=== PATIENT | male | born 1965 | race Caucasian/White ===

== ENCOUNTER 2019-04-21 06:17 | Observation (INO) | payer OTHER ==
[2019-04-19 16:05] LABS: BASOPHILS # (AUTO) 0.1 (0.0-0.1); BASOPHILS % 1.4 % (0.0-1.0); EOSINOPHILS # (AUTO) 0.4 (0.0-0.4); HEMATOCRIT 45.3 % (38.2-49.6); HEMOGLOBIN 14.8 g/dL (14.0-18.0); LYMPHOCYTES # (AUTO) 2.6 (1.0-3.2); MEAN CORPUSCULAR HGB CONC 32.7 g/dL (31-35); MEAN CORPUSCULAR VOLUME 88.8 fL (81-99); MONOCYTES # (AUTO) 0.9 (0.2-0.8); MONOCYTES % 8.7 % (4.4-11.3); NEUTROPHILS # (AUTO) 5.7 (2.1-6.9); NEUTROPHILS % 58.7 % (38.7-80.0); PLATELET COUNT 392 x10e3/uL (140-360); RED CELL DISTRIBUTION WIDTH 13.1 % (11.7-14.4)
[2019-04-19 16:15] LABS: INR 0.93
[2019-04-19 16:16] LABS: PARTIAL THROMBOPLASTIN TIME 31.9 seconds (23.8-35.5)
[2019-04-19 16:20] LABS: ANION GAP 12.9 mmol/L (8-16); BLOOD UREA NITROGEN 16 mg/dL (7-26); BUN/CREATININE RATIO 21 (6-25); CALCIUM 9.5 mg/dL (8.4-10.2); CARBON DIOXIDE 28 mmol/L (22-29); CHLORIDE 100 mmol/L (98-107); CREATININE, SERUM 0.78 mg/dL (0.72-1.25); EST GLOMERULAR FILTRATION RATE > 60 ML/MIN (60-); GLUCOSE 104 mg/dL (74-118); POTASSIUM 3.9 mmol/L (3.5-5.1); SODIUM 137 mmol/L (136-145)
--- NOTE | 2019-04-19 16:40 | Diagnostic Imaging Report ---
EXAM: CHEST 2 VIEWS DATE: 04/19/2019 3:11 PM INDICATION: Preoperative evaluation COMPARISON: None FINDINGS: There is poor history effort. The trachea is midline. The lungs are symmetrically expanded without evidence for large focal consolidation, pneumothorax, or significant pleural effusion. The cardiomediastinal silhouette and pulmonary vascular within normal limits. No acute osseous abnormality is identified. IMPRESSION: No acute cardiopulmonary process identified. Signed by: Dr. Rey Orozco MD on 04/19/2019 4:37 PM
[~2019-04-21] VITALS: Ht 185.4 cm; Wt 134.3 kg
[~2019-04-21 06:17] MED LIST: AFRIN15 ML; ASPIRIN325 MG PO; COQ-10100 MG PO; FIBER TABS625 MG PO; FOLIC ACID0.4 MG PO; KRILL OIL500 MG PO; LISINOPRIL-HCT1 EACH PO; LISINOPRIL10 MG PO; MULTI-VITAMIN1 EACH PO; PROAIR HFA INH8.5 GM INH; VITAMIN C500 MG PO; VITAMIN D3400 UNI1 PO; VITAMIN E200 UNI3 PO
[2019-04-21] MEDS ORDERED: BACITRACIN 50,000 UNIT VIAL ONE (06:42)
[2019-04-21] MEDS ORDERED: THROMBIN FOR SOLN 5,000 UNIT VIAL ONE (06:42)
[2019-04-21] MEDS ORDERED: LIDOCAINE 1% W/EPINEPHRINE 20 ML VIAL ONE (06:43)
[2019-04-21] MEDS ORDERED: ACETAMINOPHEN 1000 MG/100 ML 100 ML IV ONE (07:05)
[2019-04-21] MEDS ORDERED: LIDOCAINE HCL (LTA) 4 ML SOLN ONE (07:05)
[2019-04-21] MEDS ORDERED: CEFAZOLIN SOD 1 GM/NS 50ML 100 ML IV ONE (07:48)
[2019-04-21] MEDS ORDERED: LACTATED RINGER'S 1,000 ML IV SCH (10:41)
[2019-04-21] MEDS ORDERED: PROMETHAZINE HCL (IM) 25 MG/ML VIAL IM PRN (10:45)
[2019-04-21] MEDS ORDERED: MAGNESIUM/ALUMINUM/SIMETHICONE 30 ML UDC PO PRN (10:45)
[2019-04-21] MEDS ORDERED: HYDROMORPHONE 2MG/ML 2 MG/ML ML IV PRN (10:45)
[2019-04-21] MEDS ORDERED: OXYCODONE/ACETAMINOPHEN 5-325 1 EACH TABLET PO PRN (10:45)
[2019-04-21] MEDS ORDERED: ONDANSETRON HCL INJ 2MG/ML 2ML 2 MG/ML VIAL IV PRN (10:45)
[2019-04-21] MEDS ORDERED: CARISOPRODOL 350 MG TAB PO PRN (10:45)
[2019-04-21] MEDS ORDERED: ALBUTEROL SULFATE HFA 8GM INHALATION AEROSOL INH PRN (10:45)
[2019-04-21] MEDS ORDERED: ZOLPIDEM TARTRATE 5 MG TAB PO PRN (10:45)
[2019-04-21] MEDS ORDERED: MORPHINE SULFATE 5 MG/ML VIAL IM PRN (10:45)
[2019-04-21] MEDS ORDERED: ACETAMINOPHEN 325 MG TAB PO PRN (10:45)
[2019-04-21] MEDS ORDERED: FENTANYL CITRATE/PF 100MCG/2 ML INJ ONE ×2 (12:03→19:16)
[2019-04-21] MEDS ORDERED: CEFAZOLIN SOD 1 GM/NS 50ML 50 ML IV SCH (14:00)
[2019-04-21] MEDS ORDERED: ONDANSETRON HCL INJ 2MG/ML 2ML 2 MG/ML VIAL ONE ×2 (14:01→17:34)
[2019-04-21] MEDS ORDERED: PROPOFOL IV EMULSION 10 MG/ML 20 ML VIAL ONE (14:01)
[2019-04-21] MEDS ORDERED: LIDOCAINE HCL 2% JELLY 5 ML TUBE ONE (14:01)
[2019-04-21] MEDS ORDERED: ROCURONIUM BROMIDE 10 MG/ML 5ML VIAL ONE (14:01)
[2019-04-21] MEDS ORDERED: DEXAMETHASONE SOD PHOS INJ 4 MG/ML VIAL ONE (14:01)
[2019-04-21] MEDS ORDERED: SEVOFLURANE INHAL SOLN 250 ML PEN BTL ONE (14:01)
[2019-04-21] MEDS ORDERED: LIDOCAINE HCL 2% LOCAL INJ 5 ML SDV VIAL INJ ONE (14:01)
[2019-04-21] MEDS ORDERED: OXYCODONE/ACETAMINOPHEN 5-325 1 EACH TABLET ONE (15:08)
[2019-04-21] MEDS ORDERED: CARISOPRODOL 350 MG TAB ONE (15:09)
--- NOTE | 2019-04-21 15:13 | NUR ---
received report from renae in pacu awaiting for pt to arrive to floor
[2019-04-21 15:27] VITALS: BP 120/75
[2019-04-21 15:28] VITALS: BP 120/75
[2019-04-21 15:55] VITALS: BP 120/75
[2019-04-21] MEDS ORDERED: MORPHINE SULFATE INJ 4 MG/ML INJ 1ML IM PRN (16:00)
--- NOTE | 2019-04-21 17:12 | Operative Report ---
DATE OF PROCEDURE: 04/21/2019 SURGEON: Wilber Valderrama MD PREOPERATIVE DIAGNOSIS: Left L5-S1 disk herniation with radiculopathy, M51.17. POSTOPERATIVE DIAGNOSIS: Left L5-S1 disk herniation with radiculopathy, M51.17. PROCEDURES: Left L5-S1 laminotomy, medial facetectomy, and microsurgical diskectomy, [id number]. ANESTHESIA: General. INDICATIONS: The patient is a 54-year-old man, who presents with the left L5-S1 disk herniation with radiculopathy. He was taken to surgery for microsurgical diskectomy. PROCEDURE IN DETAIL: After induction of general anesthesia, the patient was placed on the operating table in prone position over New frame. Lumbar region was prepped and draped in sterile fashion. The preoperative x-ray was obtained and a small midline incision was created. Lumbar fascia was opened in the left of midline and subperiosteal dissection was carried out to expose the left-sided L5-S1 lamina and the medial aspect of the facet joint. A second x-ray confirmed correct localization. The operating microscope was brought in. A high-speed drill equipped with nicky bur was used to drill the inferior aspect of lamina of L5 and the medial rim of the L5-S1 facet joint and superior rim of the lamina of S1. The ligamentum flavum was resected. The epidural veins were bipolar coagulated lateral to the nerve root. The nerve root was retracted medially. The herniated disk material came into view. The posterior longitudinal ligament overlying the disk herniation was incised with a #11 blade. The herniated disk material was mobilized with a micro ball probe and retrieved with a micro pituitary rongeur and removed. This maneuver was repeated several times until all of the extruded disk material superior to the disk space was retrieved and removed. The disk anulus itself was found to be fairly intact and therefore, the disk space itself was not violated during this procedure. The wound was copiously irrigated with bacitracin solution. Excellent decompression of the nerve root had been achieved. Meticulous hemostasis was secured. A piece of fat was harvested from the subcutaneous space and placed overlying the dura and the nerve root. The lumbar fascia was closed with 0 Vicryl suture. Subcutaneous layer was closed with 2-0 Vicryl sutures. The skin was closed with 3-0 Monocryl sutures in subcuticular fashion. Steri-Strips and dressing were applied. The patient was awakened, extubated, and taken to postanesthesia care unit in stable condition. No intraoperative complications were encountered. Estimated blood loss was minimal. Wilber Valderrama MD PP/YEIMI /[id number]
[2019-04-21] MEDS ORDERED: HYDROMORPHONE 2MG/ML 2 MG/ML ML ONE (17:34)
--- NOTE | 2019-04-21 17:44 | NUR ---
medicated pt with dilaudid with zofran for pain level of 8/10 in back
--- NOTE | 2019-04-21 17:45 | NUR ---
pt off unit to room 115
--- NOTE | 2019-04-21 18:04 | NUR ---
received patient from [facility], pt is stable with no s/s of distress. no complaints of pain. pt was oriented to call light and room. instructed pt to call RN for help. family is at the bedside
[2019-04-21] MEDS ORDERED: SODIUM CHLORIDE 0.9% 250ML 250 ML ONE (18:34)
[2019-04-21] MEDS: CEFAZOLIN SOD 1 GM/NS 50ML 50 ML IV SCH (18:38)
[2019-04-21] MEDS ORDERED: MIDAZOLAM HCL 2 MG/2 ML VIAL ONE (19:16)
[2019-04-21 20:00] VITALS: BP_SYST 103; BP_SYST 120; BP_DIAS 61; BP_DIAS 75
--- NOTE | 2019-04-21 20:00 | NUR ---
RECEIVED REPORT FROM OFF GOING NURSE, PATIENT RESTING IN BED, NO COMPLAINTS VOICED. DRESSING REMAIN INTACT TO LOWER BACK, NO DISTRESS NOTED. CALL LIGHT REMAIN IN REACH.
[2019-04-21] MEDS ORDERED: OXYMETAZOLINE HCL 0.05% NAS 1 SPRAY BTL SCH (21:00)
[2019-04-21] MEDS ORDERED: INFLUENZA VIRUS VAC SPLIT INJ 0.5 ML SYR IM SCH (21:00)
[2019-04-22] VITALS: BP 112/62
--- NOTE | 2019-04-22 | NUR ---
CONTINUE RESTING, DRESSING REMAIN INTACT.
[2019-04-22] MEDS: CEFAZOLIN SOD 1 GM/NS 50ML 50 ML IV SCH ×2 (02:30→09:10)
[2019-04-22 04:00] VITALS: BP 91/51
--- NOTE | 2019-04-22 04:00 | NUR ---
ASLEEP, CALL LIGHT REMAIN IN REACH. SCD'S REMAIN INTACT, WILL CONTINUE TO MONITOR.
--- NOTE | 2019-04-22 06:44 | NUR ---
PATIENT AMBULATED IN THE HALLWAY, TOLERATED WELL, WILL CONTINUE TO MONITOR.
--- NOTE | 2019-04-22 07:25 | NUR ---
Received patient, a/ox3, rounds completed, no distress, minimal pain but well managed, call light within reach, will monitor.
--- NOTE | 2019-04-22 07:30 | NUR ---
REPORT GIVEN TO AM NURSE.
[2019-04-22 07:41] VITALS: BP 108/57
--- NOTE | 2019-04-22 08:30 | NUR ---
Tylenol #3 given for pain at 08:30, unable to document due to closed chart.
[2019-04-22] MEDS ORDERED: HYDROCHLOROTHIAZIDE 25 MG TAB PO SCH (09:00)
[2019-04-22] MEDS ORDERED: CHOLECALCIFEROL 400 UNIT TAB PO SCH (09:00)
[2019-04-22] MEDS ORDERED: MULTIVITAMINS/MINERALS TAB PO SCH (09:00)
[2019-04-22] MEDS ORDERED: CHOLECALCIFEROL 400 MG PO SCH (09:00)
[2019-04-22] MEDS ORDERED: ASCORBIC ACID 400 MG PO SCH (09:00)
[2019-04-22] MEDS ORDERED: CALCIUM POLYCARBOPHIL 625 MG TAB PO SCH (09:00)
[2019-04-22] MEDS ORDERED: LISINOPRIL 20 MG TAB PO SCH (09:00)
[2019-04-22] MEDS ORDERED: UBIDECARENONE 500 MG PO SCH (09:00)
[2019-04-22] MEDS ORDERED: KRILL OIL PO SCH (09:00)
[2019-04-22] MEDS ORDERED: ASCORBIC ACID 500 MG TAB PO SCH (09:00)
[2019-04-22] MEDS ORDERED: VITAMIN E MIXED PO SCH (09:00)
[2019-04-22 09:01] VITALS: BP 108/57
--- OUTSIDE RECORDS SUMMARY | 2019-04-22 14:03 | XMS REPORT ---
Author Author [facility] Address Unknown Phone Unavailable Care Team Providers Care Customer Strategy Manager Name Role Phone EMERSON MCFARLAND Unavailable Unavailable Problems This patient has no known problems. Allergies, Adverse Reactions, Alerts This patient has no known allergies or adverse reactions. Medications This patient has no known medications. Results Test Description Test Time Test Comments Text Results Atomic Results Result Comments CHEST 2 VIEWS 2019-04-19 16:36:00 [place] [address] Patient Name: ENRIQUE SÁNCHEZ MR #: [id number] : 1965 Age/Sex: 54/M Req #: [id number] Adm Physician: Ordered by: EMERSON MCFARLAND MD Report #: [id number] Location: OR Room/Bed: Procedure: [id number] DX/CHEST 2 VIEWS Exam Date: Exam Time: REPORT STATUS: Signed EXAM: CHEST 2 VIEWS DATE: 04/19/2019 3:11 PM INDICATION: P reoperative evaluation COMPARISON: None FINDINGS: There is poor history effort. The trachea is midline. The lungs are symmetrically expanded without evidence for large focal consolidation, pneumothorax, or significant pleural effusion. The cardiomediastinal silhouette and pulmonary vascular within normal limits. No acute osseous abnormality is identified. IMPRESSION: No acute cardiopulmonary process identified. Signed by: Dr. Rey Orozco MD on 04/19/2019 4:37 PM Dictated By: REY OROZCO MD 163 Transcribed By: CHICA on 04/19/19 163 COPY TO: EMERSON MCFARLAND MD
== END 2019-04-22 09:25 | disposition home or self-care (01) ==
LOC: OR 06:17 → PACU V 10:43 → MED/SURG 17:55
PROVIDERS: ADMIT Neurological Surgery; ATTEND Neurological Surgery
DX: M51.17 Intervertebral disc disorders with radiculopathy, lumbosacral region (principal); I10 Essential (primary) hypertension; J45.909 Unspecified asthma, uncomplicated; R12 Heartburn
CPT/HCPCS: 36415; 63047; 71046; 72020; 80048; 85025; 85610; 85730; 86850; 86900; 88304; 93005; G0378 ×2; J0131; J0690 ×2; J1100; J1170; J2001 ×2; J2250; J2405; J2704; J3010; J7050

== ENCOUNTER 2020-09-20 05:51 | Emergency (ER) | payer OTHER ==
[~2020-09-20] VITALS: Ht 185.4 cm; Wt 134.3 kg
[2020-09-20] MEDS ORDERED: SODIUM CHLORIDE 0.9% 1000ML 1,000 ML IV STA (05:59)
[2020-09-20] MEDS ORDERED: ONDANSETRON HCL INJ 2MG/ML 2ML 2 MG/ML VIAL IV STA (05:59)
[2020-09-20] MEDS ORDERED: ASPIRIN 81 MG CHEW TAB PO ONE (06:00)
[2020-09-20 06:11] LABS: BASOPHILS # (AUTO) 0.1 (0.0-0.1); BASOPHILS % 0.8 % (0.0-1.0); EOSINOPHILS # (AUTO) 0.2 (0.0-0.4); EOSINOPHILS % 1.6 % (0.0-6.0); HEMATOCRIT 48.3 % (38.2-49.6); HEMOGLOBIN 15.9 g/dL (14.0-18.0); LYMPHOCYTES # (AUTO) 0.9 (1.0-3.2); LYMPHOCYTES % 7.7 % (18.0-39.1); MEAN CORPUSCULAR HEMOGLOBIN 27.1 pg (28-32); MEAN CORPUSCULAR HGB CONC 32.9 g/dL (31-35); MEAN CORPUSCULAR VOLUME 82.4 fL (81-99); MONOCYTES # (AUTO) 1.4 (0.2-0.8); MONOCYTES % 12.7 % (4.4-11.3); NEUTROPHILS # (AUTO) 8.7 (2.1-6.9); NEUTROPHILS % 76.8 % (38.7-80.0); PLATELET COUNT 348 x10e3/uL (140-360); RED BLOOD COUNT 5.86 x10e6/uL (4.3-5.7); RED CELL DISTRIBUTION WIDTH 13.3 % (11.7-14.4)
[2020-09-20 06:22] LABS: CLARITY,URINE CLEAR (CLEAR); COLOR,URINE YELLOW (YELLOW); KETONES,URINE 2+ (NEGATIVE); LEUKOCYTE ESTERASE ,URINE NEGATIVE (NEGATIVE); NITRITE,URINE POSITIVE (NEGATIVE); PROTEIN,URINE DIPSTICK NEGATIVE (NEGATIVE); URINE UROBILINOGEN 0.2 mg/dL (0.2 - 1)
[2020-09-20 06:29] LABS: BACTERIA,URINE FEW /HPF; MUCUS,URINE FEW (RARE)
[2020-09-20 06:30] LABS: ALANINE AMINOTRANSFERASE 25 IU/L (0-55); ALBUMIN 3.2 g/dL (3.5-5.0); ALBUMIN/GLOBULIN RATIO 0.8 (0.8-2.0); ALKALINE PHOSPHATASE 59 IU/L (40-150); ANION GAP 14.9 mmol/L (8-16); BLOOD UREA NITROGEN 13 mg/dL (7-26); BUN/CREATININE RATIO 15 (6-25); CALCIUM 8.8 mg/dL (8.4-10.2); CARBON DIOXIDE 26 mmol/L (22-29); CHLORIDE 99 mmol/L (98-107); CREATINE KINASE 50 IU/L (30-200); CREATININE, SERUM 0.87 mg/dL (0.72-1.25); EST GLOMERULAR FILTRATION RATE > 60 ML/MIN (60-); GLUCOSE 124 mg/dL (74-118); POTASSIUM 3.9 mmol/L (3.5-5.1); SODIUM 136 mmol/L (136-145)
[2020-09-20] MEDS ORDERED: IOPAMIDOL 370 MG/ML 200 ML INFUS..BTL INJ ONE (06:50)
[2020-09-20] MEDS ORDERED: SODIUM CHLORIDE 0.9% 50ML 50 ML ONE (06:50)
[2020-09-20] MEDS ORDERED: LORAZEPAM INJ 2 MG/ML VIAL IV ONE (07:00)
[2020-09-20] MEDS ORDERED: VENTOLIN HFA18 GM INH (08:03)
[2020-09-20] MEDS ORDERED: PREDNISONE20 MG PO (08:03)
[2020-09-20] MEDS ORDERED: LOMOTIL TABLET1 EACH PO (08:03)
== END 2020-09-20 08:27 | disposition home or self-care (01) ==
LOC: ER 06:07
DX: R06.00 Dyspnea, unspecified (principal); R19.7 Diarrhea, unspecified; R11.2 Nausea with vomiting, unspecified; I10 Essential (primary) hypertension; K21.9 Gastro-esophageal reflux disease without esophagitis; J45.909 Unspecified asthma, uncomplicated
CPT/HCPCS: 36415; 71260; 80053; 81001; 82550; 82553; 83690; 83880; 84484; 85025; 93005; 99284; J2060; J2405; J7030; Q9967

== ENCOUNTER → 2020-09-27 | Outpatient (CLI) | payer OTHER ==
[~2020-09-27] MED LIST changes: +LOMOTIL TABLET1 EACH PO; +PREDNISONE20 MG PO; +VENTOLIN HFA18 GM INH
== END ==
LOC: CT 14:40
PROVIDERS: ATTEND Family Medicine
DX: R19.7 Diarrhea, unspecified (principal); A09 Infectious gastroenteritis and colitis, unspecified; R10.84 Generalized abdominal pain
CPT/HCPCS: 74177

== ENCOUNTER → 2020-10-19 | Day surgery (SDC) | payer OTHER ==
[~2020-10-19] MED LIST changes: +ASPIRIN81 MG PO; +FENTANYL CITRATE/PF 100MCG/2 ML INJ ONE; +MIDAZOLAM HCL 5 MG/ML VIAL ONE; +PROPOFOL IV EMULSION 10 MG/ML 20 ML VIAL ONE
[2020-10-19 18:56] LABS: WBC,FECAL (FECAL LACTOFERRIN) POSITIVE (NEGATIVE)
[2020-10-19 19:10] VITALS: BP 137/95
[2020-10-20 12:08] LABS: C DIFFICILE TOXIN A&B AMP PROB NEGATIVE (NEGATIVE)
== END | disposition home or self-care (01) ==
LOC: OR 12:31
PROVIDERS: ATTEND Internal Medicine Gastroenterology
DX: K21.9 Gastro-esophageal reflux disease without esophagitis (principal); K20.90 Esophagitis, unspecified without bleeding; K63.5 Polyp of colon; K51.50 Left sided colitis without complications; K57.30 Diverticulosis of large intestine without perforation or abscess without bleeding; K62.89 Other specified diseases of anus and rectum; K64.8 Other hemorrhoids; K29.50 Unspecified chronic gastritis without bleeding; K52.9 Noninfective gastroenteritis and colitis, unspecified; K51.90 Ulcerative colitis, unspecified, without complications; I10 Essential (primary) hypertension; Z86.718 Personal history of other venous thrombosis and embolism; Z86.16 Personal history of COVID-19; Z68.35 Body mass index [BMI] 35.0-35.9, adult; Z98.84 Bariatric surgery status
CPT/HCPCS: 36415; 43239; 45380; 45385; 83630; 83993; 85651; 86140; 86256; 86671; 87045; 87177; 87328; 87493; J2250; J2704; J3010

== ENCOUNTER 2021-08-15 17:53 | Emergency (ER) | payer OTHER ==
[~2021-08-15] VITALS: Ht 185.4 cm; Wt 134.3 kg
[~2021-08-15 17:53] MED LIST changes: -FENTANYL CITRATE/PF 100MCG/2 ML INJ ONE; -MIDAZOLAM HCL 5 MG/ML VIAL ONE; -PROPOFOL IV EMULSION 10 MG/ML 20 ML VIAL ONE
[2021-08-15] MEDS ORDERED: ACETAMINOPHEN 325 MG TAB PO ONE (18:30)
[2021-08-15] MEDS ORDERED: CEFTRIAXONE 1 GM in SODIUM CHLORIDE 0.9% 50ML 50 ML IV ONE (18:30)
[2021-08-15] MEDS ORDERED: SODIUM CHLORIDE 0.9% 1000ML 1,000 ML IV SCH (18:30)
[2021-08-15] MEDS ORDERED: ONDANSETRON HCL INJ 2MG/ML 2ML 2 MG/ML VIAL IV STA (18:41)
[2021-08-15] MEDS ORDERED: CEFTRIAXONE 1 GM VIAL ONE (18:55)
[2021-08-15 19:05] LABS: BASOPHILS # (AUTO) 0.1 (0.0-0.1); BASOPHILS % 0.4 % (0.0-1.0); EOSINOPHILS # (AUTO) 0.1 (0.0-0.4); EOSINOPHILS % 0.5 % (0.0-6.0); HEMATOCRIT 53.9 % (38.2-49.6); HEMOGLOBIN 17.3 g/dL (14.0-18.0); LYMPHOCYTES # (AUTO) 0.9 (1.0-3.2); LYMPHOCYTES % 6.9 % (18.0-39.1); MEAN CORPUSCULAR HEMOGLOBIN 26.9 pg (28-32); MEAN CORPUSCULAR HGB CONC 32.1 g/dL (31-35); MEAN CORPUSCULAR VOLUME 83.8 fL (81-99); MONOCYTES # (AUTO) 1.1 (0.2-0.8); MONOCYTES % 8.8 % (4.4-11.3); NEUTROPHILS # (AUTO) 10.3 (2.1-6.9); NEUTROPHILS % 83.2 % (38.7-80.0); PLATELET COUNT 381 x10e3/uL (140-360); RED BLOOD COUNT 6.43 x10e6/uL (4.3-5.7); RED CELL DISTRIBUTION WIDTH 14.6 % (11.7-14.4)
[2021-08-15 19:09] LABS: CLARITY,URINE CLEAR (CLEAR); COLOR,URINE YELLOW (YELLOW); KETONES,URINE TRACE (NEGATIVE); LEUKOCYTE ESTERASE ,URINE NEGATIVE (NEGATIVE); NITRITE,URINE NEGATIVE (NEGATIVE); PROTEIN,URINE DIPSTICK NEGATIVE (NEGATIVE); URINE UROBILINOGEN 0.2 mg/dL (0.2 - 1)
[2021-08-15 19:10] LABS: MUCUS,URINE FEW (RARE); RBC,URINE 0-5 /HPF (0-5); WBC,URINE (MAN) 0-5 /HPF (0-5)
[2021-08-15 19:26] LABS: ALBUMIN 3.6 g/dL (3.5-5.0); ALBUMIN/GLOBULIN RATIO 0.9 (0.8-2.0); ANION GAP 13.7 mmol/L (8-16); CALCIUM 8.1 mg/dL (8.4-10.2); CREATININE, SERUM 0.96 mg/dL (0.72-1.25); POTASSIUM 3.7 mmol/L (3.5-5.1)
[2021-08-15] MEDS ORDERED: SODIUM CHLORIDE 0.9% 50ML 50 ML ONE (20:16)
[2021-08-15] MEDS ORDERED: IOPAMIDOL 370 MG/ML 200 ML INFUS..BTL INJ ONE (20:16)
== END 2021-08-15 21:08 | disposition home or self-care (01) ==
LOC: ER 18:23
DX: R50.9 Fever, unspecified (principal); R10.32 Left lower quadrant pain; K57.92 Diverticulitis of intestine, part unspecified, without perforation or abscess without bleeding; R05.9 Cough, unspecified; Z20.822 Contact with and (suspected) exposure to COVID-19; I10 Essential (primary) hypertension; K21.9 Gastro-esophageal reflux disease without esophagitis; J45.909 Unspecified asthma, uncomplicated
CPT/HCPCS: 36415; 71045; 80053; 81001; 83605; 85025; 87040; 99283; J0696; J2405; J7030; Q9967; U0002

== ENCOUNTER 2023-02-15 16:08 | Emergency (ER) | payer OTHER ==
[~2023-02-15] VITALS: Ht 185.4 cm; Wt 118.8 kg
[2023-02-15] MEDS ORDERED: AMOX TR-K CLV1 EAC2 PO (17:39)
[2023-02-15] MEDS ORDERED: IBUPROFEN 600 MG TAB ONE (18:09)
[2023-02-15 18:15] VITALS: BP 136/78; PULSE 71; RESP 18; O2SAT 100
== END 2023-02-15 18:17 | disposition home or self-care (01) ==
LOC: ER 16:14
DX: R05.9 Cough, unspecified (principal); J06.9 Acute upper respiratory infection, unspecified; Z20.822 Contact with and (suspected) exposure to COVID-19
CPT/HCPCS: 87400; 99282; U0002

== ENCOUNTER 2024-11-21 20:27 | Emergency (ER) | payer OTHER ==
[~2024-11-21] VITALS: Ht 182.9 cm; Wt 96.6 kg
[~2024-11-21 20:27] MED LIST changes: +AMOX TR-K CLV1 EAC2 PO
[2024-11-21 21:14] LABS: BASOPHILS % 1.5 % (0.0-1.0); EOSINOPHILS % 5.0 % (0.0-6.0); LYMPHOCYTES % 33.3 % (18.0-39.1); MONOCYTES % 9.4 % (4.4-11.3); NEUTROPHILS % 50.8 % (38.7-80.0); RED CELL DISTRIBUTION WIDTH 15.6 % (11.7-14.4)
[2024-11-21 21:35] LABS: EST GLOMERULAR FILTRATION RATE 90.0 ML/MIN (>=60)
[2024-11-21] MEDS ORDERED: ONDANSETRON HCL INJ 2MG/ML 2ML 2 MG/ML VIAL IV PRN (22:15)
[2024-11-21] MEDS ORDERED: Morphine 4mg INJECTION 4 MG/ML INJ IV PRN (22:15)
[2024-11-21] MEDS ORDERED: SODIUM CHLORIDE 0.9% 1000ML 1,000 ML IV SCH (22:15)
[2024-11-21] MEDS ORDERED: ASPIRIN 81 MG CHEW TAB PO ONE (22:15)
[2024-11-21 22:37] VITALS: PULSE 75; RESP 20; TEMP 98.1
[2024-11-21 23:45] VITALS: BP 107/76; PULSE 78; RESP 14; TEMP 98.2; O2SAT 95
== END 2024-11-21 23:51 | disposition home or self-care (01) ==
LOC: ER 20:48
DX: R06.02 Shortness of breath (principal); R07.89 Other chest pain; I10 Essential (primary) hypertension; J45.909 Unspecified asthma, uncomplicated; E78.5 Hyperlipidemia, unspecified; K21.9 Gastro-esophageal reflux disease without esophagitis; Z98.84 Bariatric surgery status
CPT/HCPCS: 36415; 71045; 80053; 82550; 83690; 83880; 84484; 85025; 93005; 99284